=== PATIENT | male | born 1955 ===

== ENCOUNTER 2018-11-29 07:21 | Day surgery (SDC) | payer BC ==
[~2018-11-29] VITALS: Ht 162.6 cm; Wt 70.8 kg
[2018-11-29] VITALS (8 sets, daily range): BP systolic 110–155; BP diastolic 72–96
[2018-11-29] MEDS ORDERED: MULTIVITAMINS1 EAC2 ORAL (08:16)
[2018-11-29] MEDS ORDERED: ZOCOR20 M1 ORAL (08:16)
[2018-11-29] MEDS ORDERED: AMANTADINE50 MG/5 ML ORAL (08:16)
[2018-11-29] MEDS ORDERED: CALCIUM 500 +1 EAC6 PO (08:16)
[2018-11-29] MEDS ORDERED: GERI-TUSSI100 MG/5 M PO (08:16)
[2018-11-29] MEDS ORDERED: ACETAMINOPHEN500 M5 ORAL (08:16)
[2018-11-29] MEDS ORDERED: LEVETIRACETAM1000 MG ORAL (08:16)
[2018-11-29] MEDS ORDERED: BENEFIBER1 EACH ORAL (08:16)
[2018-11-29] MEDS ORDERED: PRAMIPEXOLE D0.25 MG ORAL (08:16)
[2018-11-29] MEDS ORDERED: VITAMIN E400 UNI5 PO (08:16)
[2018-11-29] MEDS ORDERED: VITAMIN D400 INTLU ORAL (08:16)
[2018-11-29] MEDS ORDERED: VITAMIN C500 M1 ORAL (08:16)
[2018-11-29] MEDS ORDERED: VALPROIC A250 MG/5 M PO (08:16)
[2018-11-29] MEDS ORDERED: ARTIFICIAL TEAR15 M7 OP (08:28)
[2018-11-29] MEDS ORDERED: Bacitracin Oint 15gm Tube TOPIC ONE (09:31)
[2018-11-29] MEDS ORDERED: Bupivacaine 0.25% Inj 30ml INJ ONE (09:31)
[2018-11-29] MEDS ORDERED: Dexamethasone 4mg/ml vial ONE (09:31)
[2018-11-29] MEDS ORDERED: Bacitracin 50000 Units Vial ONE (09:32)
[2018-11-29] MEDS ORDERED: Lidocaine 1% Plain 30 ml INJ ONE (09:32)
[2018-11-29] MEDS ORDERED: NS Irrig 1000ml IRRIG ONE ×2 (10:09→11:30)
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
--- NOTE | 2018-11-29 10:43 | Pre-Procedure Note/Attestation ---
Pre-Procedure Note/Attestation Complete Prior to Procedure Planned Procedure: right Procedure Narrative: R 5th metatarsal osteotomy Attestation I attest that I discussed the nature of the procedure; its benefits; risks and complications; and alternatives (and the risks and benefits of such alternatives ), prior to the procedure, with the patient (or the patient's legal specialty sales representative). I attest that, if there was a reasonable possibility of needing a blood transfusion, the patient (or the patient's legal specialty sales representative) was given the [facility] standardized written summary, pursuant to the [place] Blood Safety Act ([place] Health and Safety Code # 1645, as amended). I attest that I re-evaluated the patient just prior to the surgery and that there has been no change in the patient's H&P, except as documented below: Rashad Miller DPM Nov 29, 2018 10:43
[2018-11-29] MEDS ORDERED: Lidocaine 1% MPF 10mg/ml 5ml ONE (11:17)
[2018-11-29] MEDS ORDERED: Propofol 200mg/20ml IV ONE (11:17)
[2018-11-29] MEDS ORDERED: Midazolam 2mg/2ml Inj ONE (11:18)
[2018-11-29] MEDS ORDERED: fentaNYL 100 mcg/2 mL IV ONE (11:18)
[2018-11-29] MEDS ORDERED: LR 1000ml 1,000 ML IVLG SCH (11:54)
[2018-11-29] MEDS ORDERED: DiphenhydrAMINE 50mg/ml Inj IVP PRN (12:00)
[2018-11-29] MEDS ORDERED: LORazepam Inj 2mg/ml 1ml IV PRN (12:00)
[2018-11-29] MEDS ORDERED: fentaNYL 100 mcg/2 mL IV PRN (12:00)
--- NOTE | 2018-11-29 12:29 | Immediate Post-Op Evaluation ---
Immediate Post-Op Evalulation Immediate Post-Op Evalulation Procedure: Right 5th metatarsal osteotomy Date of Evaluation: Nov 29, 2018 Time of Evaluation: 12:31 IV Fluids: 250 Blood Products: 0 Estimated Blood Loss: 0 Urinary Output: 0 Blood Pressure Systolic: 113 Blood Pressure Diastolic: 73 Pulse Rate: 84 Respiratory Rate: 16 O2 Sat by Pulse Oximetry: 100 Temperature (Fahrenheit): 97.6 Pain Score (1-10): 0 Nausea: No Vomiting: No Complications 0 Patient Status: awake, reacts, patent, none Hydration Status: adequate Drug: Ancef 1g Given Within 1 Hr of Incision: Yes Radha Iniguez MD Nov 29, 2018 12:29
--- NOTE | 2018-11-29 12:30 | 48 Hour Post Anesthesia Eval ---
Post Anesthesia Evaluation Procedure: Right 5th metatarsal osteotomy Date of Evaluation: Nov 29, 2018 Airway: patent Nausea: No Vomiting: No Hydration Status: adequate Cardiopulmonary Status: at baseline Mental Status/LOC: patient returned to baseline Post-Anesthesia Complications: 0 Follow-up care needed: ready to discharge Radha Iniguez MD Nov 29, 2018 12:30
--- NOTE | 2018-11-30 03:30 | Operative Note - Dictated ---
DATE OF OPERATION: 11/29/2018 PREOPERATIVE DIAGNOSIS: Metatarsal exostosis, right fifth metatarsal. POSTOPERATIVE DIAGNOSIS: Metatarsal exostosis, right fifth metatarsal. NAME OF OPERATION: Metatarsal osteotomy of the right fifth. HEMOSTASIS: Pneumatic ankle tourniquet. ESTIMATED BLOOD LOSS: Minimal. ANESTHESIA: Local with MAC. SURGEONS: Paul Solorzano D.P.M. PROCEDURE IN DETAIL: Under mild sedation, the patient was brought into the operating room and placed on the operating table in supine position. After MAC anesthesia, local anesthesia was administrated to the proximal aspect in the medial fashion of the right fifth metatarsal area. Injection was 1:1 mixture of 1% lidocaine plain and 0.25% Marcaine plain about 5 mL of anesthesia was injected. The foot was then scrubbed and draped in the usual aseptic manner. An Esmarch bandage was utilized to delineate the patient's right foot. Foot was elevated and the neck and the tourniquet was inflated to 250 mmHg. Attention was directed to the lateral aspect of the right fifth metatarsal. A linear incision was excised 3 cm in length. The incision was deepened through subcutaneous tissue. The care was taken to identify and retract all neurovascular structures. All bleeders were ligated as needed. The incision was deepened through the capsule utilizing #15 blade. The capsule was then excised and freed from the osseous attachments. All soft tissue attachment to the metatarsal head was released. At this time, a sagittal blade was utilized to excise the plantar aspect of the metatarsal head from distal to proximal. The osteotomy fragment was then excised utilizing a #15 blade and passed from the operating surgical site to the back table. The surgical site noted to be satisfactory. The wound was then flushed with copious amount of normal saline. Upon completion of the procedure, the subcutaneous tissue was reapproximated utilizing a 3-0 Vicryl. The skin is reapproximated utilizing 4-0 nylon in a simple suture in an interlocking technique. The incision was dressed with Xeroform and 4 x 4 and Kerlix. The patient tolerated the procedure and anesthesia well. Cuff hyperemia was noted to deflate up the ankle tourniquet. The patient was sent to recovery. After the patient is stable, can be discharged to a detention facility. Order was given for acute dry and intact ____ dressing will be changed at this facility. The family was notified to call me with any questions. Rashad Miller D.P.M DR: MIGUELINA JOB#: [id number] CC:
--- NOTE | 2018-11-30 17:21 | Cardiology Report ---
APPROVED REPORT EKG Measurement Heart [id number] TN [id number] Normal sinus rhythm Normal ECG
== END 2018-11-29 14:00 | disposition home or self-care (01) ==
LOC: SUR 07:21
DX: M89.9 Disorder of bone, unspecified (principal); G40.909 Epilepsy, unspecified, not intractable, without status epilepticus; E78.5 Hyperlipidemia, unspecified
CPT/HCPCS: 28308; 93005; J0690; J2001; J2250; J2704; J3010; J3490; 94003; 94150